=== PATIENT | female | born 1970 | race Caucasian/White ===

== ENCOUNTER → 2016-12-21 | Outpatient (CLI) | payer BC ==
[2014-06-01 21:32] VITALS: BP 135/80
== END ==
LOC: MAMMO 08:40
DX: Z12.31 Encounter for screening mammogram for malignant neoplasm of breast (principal)
CPT/HCPCS: G0202

== ENCOUNTER → 2018-01-02 | Outpatient (CLI) | payer BC ==
[2014-06-01 21:32] VITALS: BP 135/80
== END ==
LOC: MAMMO 08:30
DX: Z12.31 Encounter for screening mammogram for malignant neoplasm of breast (principal)

== ENCOUNTER → 2019-01-09 | Outpatient (CLI) | payer BC ==
[2014-06-01 21:32] VITALS: BP 135/80
== END ==
LOC: MAMMO 15:58
DX: Z12.31 Encounter for screening mammogram for malignant neoplasm of breast (principal)

== ENCOUNTER → 2020-01-29 | Outpatient (CLI) | payer BC ==
[2014-06-01 21:32] VITALS: BP 135/80
== END ==
LOC: MAMMO 08:30
DX: Z12.31 Encounter for screening mammogram for malignant neoplasm of breast (principal)

== ENCOUNTER → 2020-09-07 | Day surgery (SDC) | payer BC ==
[2014-06-01 21:32] VITALS: BP 135/80
== END | disposition home or self-care (01) ==
LOC: MSO 07:29
DX: Z12.11 Encounter for screening for malignant neoplasm of colon (principal)
CPT/HCPCS: 00812; J2704; J3010; J7120

== ENCOUNTER → 2021-01-26 | Outpatient (CLI) | payer BC | LOC: MAMMO 08:30 | DX: Z12.31 Encounter for screening mammogram for malignant neoplasm of breast (principal) ==

== ENCOUNTER → 2021-01-28 | Outpatient (CLI) | payer BC | LOC: MAMMO 12:15 | DX: R92.0 Mammographic microcalcification found on diagnostic imaging of breast (principal) ==

== ENCOUNTER → 2022-01-20 | Outpatient (CLI) | payer BC | LOC: MAMMO 08:28 | DX: Z12.31 Encounter for screening mammogram for malignant neoplasm of breast (principal); Z85.3 Personal history of malignant neoplasm of breast; Z98.890 Other specified postprocedural states; Z92.3 Personal history of irradiation ==

== ENCOUNTER → 2024-06-07 | Outpatient (CLI) | payer BC | LOC: RAD 14:18 | DX: R05.9 Cough, unspecified (principal) ==